=== PATIENT | male | born 1940 | race Caucasian/White ===

== ENCOUNTER 2020-10-30 00:03 | Inpatient (IN) | payer MEDICARE ==
[2020-10-30] VITALS (7 sets, daily range): BP systolic 122–165; BP diastolic 66–100
[~2020-10-30] VITALS: Ht 182.9 cm; Wt 96.9 kg
--- NOTE | 2020-10-30 00:34 | PHYS DOC ---
Past History Past Medical History: Anxiety, Arthritis, Diabetes, UTI Past Surgical History prostate General Adult EDM: Chief Complaint: MECHANICAL FALL HPI: HPI: ".. I went to clean up some urine .. I dribble on the way to bathroom tonight .. and I tripped and fell.. this is second time I ve falled this week... " .. " I ve been having some chest pain too.. all week.. " Patient is a 79 year old male who presents with above hx and complaints of trip with fall. Pt. has fallen twice this week. Patient has had increased weakness unstable gait. Patient on current fall complaints of bilateral hip pain and knee pain. Patient has obvious contusions of both knees. Patient normally follows with Dr. Wilde for care. Follows with Dr. 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 Has past medical history of coronary artery disease, COPD, diabetes, hypertension, A. fib, GERD, enlarged prostate, arthritis, depression, gait disorder and dementia. Review of Systems: Review of Systems: Constitutional: Denies fever or chills Eyes: Denies change in visual acuity HENT: Denies nasal congestion or sore throat Respiratory: Denies cough or shortness of breath Cardiovascular: Denies chest pain or edema GI: Denies abdominal pain, nausea, vomiting, bloody stools or diarrhea : Denies dysuria Musculoskeletal: Complains of bilateral hip and bilateral knee pain Integument: Denies rash Neurologic: Denies headache, focal weakness or sensory changes Endocrine: Denies polyuria or polydipsia Lymphatic: Denies swollen glands Psychiatric: Denies depression or anxiety Family History: Family History: Noncontributory to presentation Current Medications: Current Meds: See nursing for home meds Allergies: Allergies: Allergies Coded Allergies Type Severity Reaction Last Updated Verified No Known Drug Allergies 10/30/20 No Physical Exam: PE: Constitutional:in acute distress, non-toxic appearance. [] HENT: Normocephalic, atraumatic, bilateral external ears normal, oropharynx moist, no oral exudates, nose normal. [] Eyes: PERRLA, EOMI, conjunctiva normal, no discharge. [] Neck: Normal range of motion, no tenderness, supple, no stridor. [] Cardiovascular:Heart rate regular rhythm, no murmur [. PMI to the left. Lungs & Thorax: Bilateral breath sounds a a sick with basilar crackles on auscultation []. Pacer Abdomen: Bowel sounds normal, soft, no tenderness, no masses, no pulsatile masses. Old surgical scar. Skin: Warm, dry, no erythema, no rash. Poor turgor Back: No tenderness, no CVA tenderness. [] Extremities: Bilateral knee and hip tenderness, no cyanosis, no clubbing, ROM that is painful, bilateral knee edema. Ecchymosis to both knees. Is able to complete straight leg lift with effort Neurologic: Alert and oriented X 3, moves all extremities on request, does have distal sensory,, no new focal deficits noted per and patient Psychologic: Affect anxious, judgement apparent memory issues, mood normal. [] EKG: EKG: My interpretation EKG shows a sinus rhythm at 95 bpm. Does have PVCs. Does have PACs. [] Radiology/Procedures: Radiology/Procedures: [][address] [address] IMAGING REPORT Signed PATIENT: JAMMIE COHEN ACCOUNT: [id number] : 1940 LOCATION: ER AGE: 79 SEX: M EXAM STATUS: REG ER ORD. PHYSICIAN: FEDE DAMON MD REASON: fall PROCEDURE: KNEE BILAT 4V EXAMINATION: Pelvic and bilateral hips, bilateral knee radiographs VIEWS: Single AP view of the pelvis and 2 views of bilateral hips and 3views of bilateral knees COMPARISON: None INDICATION:79 years, Male, fall. FINDINGS: Pelvis/hips: No acute fracture or malalignment. Mild symmetric arthritis of bilateral hips right knee: No acute fracture. Chondrocalcinosis is noted in the medial and lateral compartments. Minimal/mild tricompartmental osteoarthritis. Left knee: No acute fracture or malalignment. No significant joint effusion. IMPRESSION: No acute osseous injury of the pelvis or bilateral knees. Electronically signed by: Ziggy Wilson DO (10/30/2020 2:04 AM) [facility] DICTATED AND SIGNED BY: ZIGGY WILSON DO DATE: 10/30/20 0200 CC: FEDE DAMON MD; DEREK POLK MD ~MTH0 0 Heart Score: C/O Chest Pain: N/A HEART Score for Chest Pain: HEART Score for Chest Pain Response (Comments) Value History Moderately Suspicious 1 ECG Nonspecific Repolarizatio 1 Age > 65 2 Risk Factors 1 or 2 Risk Factors 1 Troponin < Normal Limit 0 Total 5 Risk Factors: Risk Factors: DM, Current or recent (<one month) smoker, HTN, HLP, family history of CAD, obesity. Risk Scores: Score 0 - 3: 2.5% MACE over next 6 weeks - Discharge Home Score 4 - 6: 20.3% MACE over next 6 weeks - Admit for Clinical Observation Score 7 - 10: 72.7% MACE over next 6 weeks - Early Invasive Strategies Course & Med Decision Making: Course & Med Decision Making Pertinent Labs and Imaging studies reviewed. (See chart for details) Zeinab presentation, testing and treatment plan with . Admit to his service at [place]. Impression: 1. Trip and Fall 2. Weakness 3. Bilateral Hip and Knee Contusions 4. Leukocytosis 15.8 5. Diabetes glucose 211 6. Urinary tract infection 7. Has completed Covid vaccination x2 [] Dragon Disclaimer: Dragon Disclaimer: This electronic medical record was generated, in whole or in part, using a voice recognition dictation system. Departure Departure: Referrals: DEREK POLK MD (PCP) Rosa Elenaon Disclaimer This chart was dictated in whole or in part using Voice Recognition software in a busy, high-work load, and often noisy Emergency Department environment. It may contain unintended and wholly unrecognized errors or omissions. Dragon Disclaimer This chart was dictated in whole or in part using Voice Recognition software in a busy, high-work load, and often noisy Emergency Department environment. It may contain unintended and wholly unrecognized errors or omissions. FEDE DAMON MD Oct 30, 2020 00:34
[2020-10-30] MEDS ORDERED: NEOMY/BACITR/POLYMYXIN OINT PACKET. TP ONE (01:09)
[2020-10-30 01:22] LABS: BASO # 0.1 x10^3/uL (0.0-0.2); BASO % 1 % (0-3); EOS # 0.2 x10^3/uL (0.0-0.7); EOS % 1 % (0-3); HEMATOCRIT 43.5 % (39.0-53.0); HEMOGLOBIN 14.5 g/dL (13.0-17.5); LYMPH % 7 % (24-48); MEAN CORPUSCULAR HEMOGLOBIN 33 pg (25-35); MEAN CORPUSCULAR HGB CONC 33 g/dL (31-37); MEAN CORPUSCULAR VOLUME 100 fL (79-100); MONO # 1.3 x10^3/uL (0.0-1.1); MONO % 8 % (0-9); NEUT # 13.2 x10^3uL (1.8-7.7); NEUT % 84 % (31-73); PLATELET COUNT 166 x10^3/uL (140-400); RED BLOOD COUNT 4.36 x10^6/uL (4.30-5.70); RED CELL DISTRIBUTION WIDTH 14.7 % (11.5-14.5); WHITE BLOOD COUNT 15.8 x10^3/uL (4.0-11.0)
[2020-10-30 01:27] LABS: BILIRUBIN,URINE NEG (NEG); CLARITY,URINE HAZY; COLOR,URINE YELLOW; GLUCOSE,URINE 100 mg/dL (NEG); NITRITE,URINE NEG (NEG); UROBILINOGEN,URINE 0.2 mg/dL (0.2 mg/dL)
[2020-10-30 01:28] LABS: BACTERIA,URINE FEW /HPF (0-FEW); CALCIUM 9.3 mg/dL (8.5-10.1); CREATININE 0.8 mg/dL (0.7-1.3); GFR 93.7; POTASSIUM 4.3 mmol/L (3.5-5.1); RBC,URINE OCC /HPF (0-2); SQUAMOUS EPITHELIAL CELL,UR FEW /LPF; WBC,URINE 20-40 /HPF (0-4)
[2020-10-30 01:30] LABS: BARBITURATES POS (NEG); BENZODIAZEPINES NEG (NEG); CANNABINOIDS NEG (NEG); COCAINE NEG (NEG); METHADONE NEG (NEG); OPIATES NEG (NEG); PHENCYCLIDINE NEG (NEG)
[2020-10-30] MEDS ORDERED: IV RINGERS SOLUTION,LACTATED 1,000 ML IV SCH (01:30)
[2020-10-30] MEDS ORDERED: MORPHINE SULFATE 10 MG/ML SYRINGE. SQ ONE (01:30)
[2020-10-30 01:48] LABS: ALBUMIN 4.1 g/dL (3.4-5.0); DIRECT BILIRUBIN 0.1 mg/dL (0.0-0.2); MAGNESIUM 1.9 mg/dL (1.8-2.4); TOTAL BILIRUBIN 0.3 mg/dL (0.2-1.0); TOTAL PROTEIN 6.9 g/dL (6.4-8.2)
[2020-10-30 01:52] LABS: AMPHETAMINE/METHAMPHETAMINE NEG (NEG)
[2020-10-30 02:00] LABS: % BANDS 7 % (0-9); % BASOS 1 % (0-3); % EOS 1 % (0-5); % LYMPHS 3 % (24-48); % MONOS 5 % (0-10); % SEGS 83 % (35-66); PLT ESTIMATE ADEQUATE (ADEQUATE)
--- NOTE | 2020-10-30 02:06 | RAD ---
EXAMINATION: Pelvic and bilateral hips, bilateral knee radiographs VIEWS: Single AP view of the pelvis and 2 views of bilateral hips and 3views of bilateral knees COMPARISON: None INDICATION:79 years, Male, fall. FINDINGS: Pelvis/hips: No acute fracture or malalignment. Mild symmetric arthritis of bilateral hips right knee: No acute fracture. Chondrocalcinosis is noted in the medial and lateral compartments. Min imal/mild tricompartmental osteoarthritis. Left knee: No acute fracture or malalignment. No significant joint effusion. IMPRESSION: No acute osseous injury of the pelvis or bilateral knees. Electronically signed by: Pantera Wilson DO (10/30/2020 2:04 AM) [facility]
[2020-10-30] MEDS ORDERED: DULO30CA2 PO (02:12)
[2020-10-30] MEDS ORDERED: METO50TA29 PO (02:12)
[2020-10-30] MEDS ORDERED: GABA600T7 PO (02:12)
[2020-10-30] MEDS ORDERED: TAMS0.4C97 PO (02:12)
[2020-10-30] MEDS ORDERED: ATOR40TA59 PO (02:12)
[2020-10-30] MEDS ORDERED: WARF2TAB96 PO (02:12)
[2020-10-30] MEDS ORDERED: PRIM250T28 PO (02:12)
[2020-10-30] MEDS ORDERED: METF-658 PO (02:12)
[2020-10-30] MEDS ORDERED: VIT1TABL32 PO (02:12)
[2020-10-30] MEDS ORDERED: tylenol arthritis PO (02:12)
[2020-10-30] MEDS ORDERED: WARF10TA40 PO (02:12)
[2020-10-30] MEDS ORDERED: OMEP40CA7 PO (02:12)
[2020-10-30] MEDS ORDERED: FINA5TAB4 PO (02:12)
[2020-10-30] MEDS ORDERED: ACETAMINOPHEN 325 MG TABLET PO PRN ×2 (02:15→13:15)
[2020-10-30] MEDS ORDERED: ONDANSETRON PF 4 MG/2 ML VIAL. IVP PRN (02:15)
[2020-10-30] MEDS ORDERED: cefTRIAXone SODIUM 1 GM VIAL ONE (02:47)
[2020-10-30] MEDS ORDERED: DIPH,PERTUSS(ACELL),TET VAC/PF 0.5 ML SYRINGE. VAX IM ONE ×2 (02:47→03:30)
[2020-10-30] MEDS ORDERED: IV NORMAL SALINE 50ML 50 ML ONE (02:47)
--- NOTE | 2020-10-30 03:32 | EKG ---
[address] [address] Test Date: 2020-10-30 Test Time: 00:16:51 Pat Name: JAMMIE COHEN Department: Room: 105 A Gender: M Business Office Manager: : 1940 Requested By: FEDE DAMON Order Number: [id number] Reading MD: Markie Pool Measurements Intervals [place] Rate: 95 P: 54 CT: 204 QRS: 40 QRSD: 90 T: 39 QT: 336 QTc: 425 Interpretive Statements SINUS RHYTHM VENTRICULAR PREMATURE COMPLEX(ES) ATRIAL PREMATURE COMPLEX(ES) ABNORMAL ECG RI6.02 No previous ECG available for comparison Electronically Signed On 10-31-2020 13:14:12 CDT by Markie Pool
--- NOTE | 2020-10-30 05:31 | NUR ---
Arrives to Rm 105 via cart from ED in stable condition; VSS, A&Ox4; Sats 94% on 2L O2 via nasal canula; LR infusing via #22g IV to left antecubital site; room orientation given, plan of care discussed, verbalizes understanding; no voiced needs or concerns at this time; siderails up x2, call dunne in reach.
--- NOTE | 2020-10-30 06:02 | RAD ---
EXAMINATION: Chest radiograph. VIEWS: Single AP view the chest COMPARISON: None INDICATION:79 years, Male, fall. FINDINGS: Normal cardiomediastinal silhouette. Left chest cardiac pacing device appears to be in stable positio n. Please note bilateral costophrenic angles terminating outside the field of view. There is curvilin ear hazy opacity in the right lower lobe. Minimal left basilar subsegmental atelectasis. No focal con solidation. No pleural effusion or pneumothorax. No acute osseous process. IMPRESSION: Right lower lobe opacity may represent atelectasis and/or contusion in the setting of fall Electronically signed by: Pantera Wilson DO (10/30/2020 5:59 AM) [facility]
[2020-10-30] MEDS: LACTOBACILLUS RHAMNOSUS GG 1 CAPSULE. PO SCH ×2 (07:53→20:34)
[2020-10-30] MEDS ORDERED: IPRATRPIUM/ALBUTEROL 0.5/2.5MG 3 ML NEBU. NEB SCH (08:00)
[2020-10-30] MEDS ORDERED: IPRATRPIUM/ALBUTEROL 0.5/2.5MG 3 ML NEBU. NEB PRN (10:45)
--- NOTE | 2020-10-30 14:38 | HP ---
ADMIT DATE: 10/30/2020 HISTORY OF PRESENT ILLNESS: The patient is a 79-year-old male patient who was brought to the Emergency Room with a complaint of mechanical fall. According to him, he went to clean up some urine, had dribbled on the way to the bathroom and tripped and fell and according to him, this is second time he fell this week. He also complained of some chest pain, that too all the week. This was a complaint to the ER physician, although to me his main complaint was pain in his feet and his back and unsteady gait. Apparently, the patient has increased weakness and unstable gait. He is not using any cane or walker, and he also complained of pain in his hips and knees when he fell, with obvious contusion of both knees. His primary care physician is Dr. Wilde and his ingredient mixer is Dr. Nilay Purdy. He was extensively investigated in the emergency room, has had lab work and imaging studies. His white cell count was found to be high at 15,800. Although, he is on Coumadin for AFib. His INR was subtherapeutic at 1.5. His chemistry was fairly unremarkable. Urinalysis showed the urine was yellow, hazy with pH of 7, there was a large amount of 20-40 wbc's and few bacteria. His tox screen was positive for barbiturates. His chest x-ray showed he has right lower lobe opacity, may represent atelectasis and/or contusion in the setting of fall. X-ray of the knee showed no acute fracture or malalignment, mild symmetric arthritis of both hip joints and x-ray of both knee joints showed no acute fracture, but he does have chondrocalcinosis noted in the medial and lateral compartment on the right knee. On the left knee, there is no acute fracture or malalignment. No significant joint effusion. The patient was admitted with diagnosis of recurrent falls, generalized weakness, urinary tract infection, apparently, he was vaccinated for COVID-19. PAST MEDICAL HISTORY: Significant for hypertension, hyperlipidemia. He also has atrial fibrillation, benign prostatic hypertrophy, peripheral neuropathy, gastroesophageal reflux disease, type 2 diabetes mellitus and senile macular degeneration. PAST SURGICAL HISTORY: Significant for three back surgeries and neck surgery. He has a permanent pacemaker placement, bilateral cataract extraction, tonsillectomy, cholecystectomy, appendectomy. He also underwent screening colonoscopy. ALLERGIES: He has no known drug allergies. MEDICATIONS: He is currently on following medications: He is on tamsulosin 0.4 mg at bedtime, warfarin 3 mg p.o. daily and warfarin 2 mg daily, atorvastatin calcium 40 mg at bedtime, metoprolol succinate 50 mg once a day, primidone 250 mg twice a day, gabapentin 600 mg 3 times a day, duloxetine 30 mg twice a day. He is on omeprazole 40 mg daily. He is on metformin 1000 mg twice a day. He is on Ocuvite tablet one tablet once a day. He is on finasteride 5 mg daily and Tylenol 650 mg every 6 hours as needed for pain. FAMILY HISTORY: Noncontributory. SOCIAL HISTORY: He lives with his ex-. He has 2 sons and 1 daughter. He is an ex-smoker, quit 30 years ago. He is also to be a heavy alcohol drinker, quit 30 years ago. Does not use any drugs. He is a fabricator mechanic/welder, he is retired. REVIEW OF SYSTEMS: The patient denied any blurring vision, has bilateral cataract extractions, has had senile macular degeneration, for which he has received injections into his eyes. Denied any earache, tinnitus or sensory deafness. Denied any nosebleed, stuffy nose or postnasal drip. Denied any sore throat, sore tongue, toothache, hoarseness of voice or difficulty swallowing. Denied any nausea, vomiting, diarrhea or constipation. Denied any hematemesis, melena or hematochezia. Did complain of nocturia, frequency, hesitancy and postvoid dribbling. Denied any hematuria or dysuria. Denies any chest pain, shortness of breath except on exertion. Denied any orthopnea or paroxysmal nocturnal dyspnea. Denied any cough, phlegm or hemoptysis. Denied any chills, rigors or fever. PHYSICAL EXAMINATION: GENERAL: On arrival to the Emergency Room, he looked well and was clearly in no apparent respiratory distress. There was no pallor, jaundice, or cyanosis. No lymphadenopathy, no thyromegaly, no jugular venous distention. Mild bilateral lower limb edema. VITAL SIGNS: His heart rate on arrival was 99, blood pressure 151/89, temperature was 98.6, respiratory rate was 24 and oxygen saturation was 94% on room air. HEAD, EYES, EARS, NOSE, AND THROAT: Normocephalic, atraumatic. NECK: Supple. HEART: Showed normal first and second sound. No gallop or murmur. CHEST: Shows central trachea, equal bilateral chest expansion, air entry, vesicular breath sounds. I could not really appreciate any crepitation or rhonchi. ABDOMEN: Distended, soft, nontender. NEUROLOGIC: He was awake, alert, responding appropriately. All cranial nerves intact. He moves extremities without difficulty, although apparently has generalized weakness, unsteady gait and recurrent falls. LABORATORY DATA: In the Emergency Room, has had lab work done, which showed that his white cell count was high at 15,800, hemoglobin 14.5, hematocrit 43.5, MCV 100 and platelet count of 166,000 with a manual differential showing 84% polymorphs, 8% monocytes, 7% lymphocytes. His prothrombin time was 14.9, INR 1.5, APTT was 32 and a D-dimer was 0.29. His chemistry showed a serum sodium 141, potassium 4.3, chloride 101, bicarbonate 31, anion gap of 9, BUN 10, creatinine 0.8,estimated GFR was 94 mL per minute, her glucose was 211, calcium was 9.3, magnesium was 1.9. Total bilirubin, AST, ALT and alkaline phosphatase were normal. CK was 51. Beta natriuretic peptide was 111. Total protein was 6.9, albumin was 4.1. His urinalysis showed the urine was yellow, hazy with a pH of 7, specific gravity of 1.020. There was small amount of protein, small amount of glucose, trace of ketones, trace of blood, negative for nitrite and bilirubin. There was small amount of leukocyte esterase, occasional rbc's, 20-40 wbc's and few bacteria. Toxic screen was positive for barbiturates. His coronavirus by rapid testing was negative. His chest x-ray showed normal cardiomediastinal silhouette, left chest cardiac pacing device appears to be in stable position. He is not bilateral costophrenic angles termination outside the field of view. There is a curvilinear hazy opacity in the right lower lobe, minimal left basilar subsegmental atelectasis, no focal consolidation. No pleural effusion, no pneumothorax, no acute osseous abnormality. X-ray of the pelvis and hip showed no acute fracture or malalignment. Mild symmetric arthritis of bilateral hips, right knee showed no acute fracture. He has chondrocalcinosis noted in the medial and lateral compartment, minimal; mild tricompartmental osteoarthritis, left knee showed no acute fracture or malalignment. No significant joint effusion. ASSESSMENT AND PLAN: The patient was admitted with generalized weakness and recurrent falls. He was found also to have urinary tract infection with marked leukocytosis and leukocyturia. I did reconcile his medication. His PT/INR is subtherapeutic. I will consult physical and occupational therapy. We will check also his orthostatic and decide on further management accordingly. ERNESTO DR: Thao TID: [id number]
[2020-10-30] MEDS: GABAPENTIN 300 MG CAPSULE. PO SCH ×2 (15:53→20:34)
[2020-10-30] MEDS: metFORMIN XR 500 MG TAB.ER.24H PO SCH (15:53)
--- NOTE | 2020-10-30 17:17 | NUR ---
PT SAW PT/OT TODAY. PT CAN USE A WALKER AND GO TO BEDSIDE COMMODE WITH 1-2 PERSON ASSIST. PT SAT AT BEDSIDE FOR SOME TIME TODAY AND THEN SAT IN CHAIR FOR SOME TIME TODAY. PT LIVES AT HOME WITH EX-. PT STATES HE IS GOING TO START USING A WALKER AT HOME. PT DID NOT COMPLAIN OF PAIN TODAY.
--- NOTE | 2020-10-30 18:04 | NUR ---
CONSULT CALLED TO CARDIOLOGY PER DR. ENG
--- NOTE | 2020-10-30 19:11 | NUR ---
Pt is feeling fatigued this evening and was unable to stand for last set of orthostatic VS.
[2020-10-30] MEDS: PRIMIDONE 250 MG TABLET PO SCH (20:34)
[2020-10-30] MEDS: MULTIVITAMIN I-VITE TABLET. PO SCH (20:34)
[2020-10-30] MEDS: DULoxetine HCL 30 MG CAPSULE.DR PO SCH (20:34)
[2020-10-30] MEDS ORDERED: TAMSULOSIN 0.4 MG CAP.ER.24H. PO SCH (21:00)
[2020-10-30] MEDS ORDERED: ATORVASTATIN CALCIUM 20 MG TABLET PO SCH (21:00)
[2020-10-31 05:00] VITALS: BP 117/74
[2020-10-31 06:22] LABS: BASO # 0.1 x10^3/uL (0.0-0.2); BASO % 1 % (0-3); EOS # 0.1 x10^3/uL (0.0-0.7); EOS % 1 % (0-3); HEMATOCRIT 40.3 % (39.0-53.0); HEMOGLOBIN 13.5 g/dL (13.0-17.5); LYMPH # 0.9 x10^3/uL (1.0-4.8); LYMPH % 7 % (24-48); MEAN CORPUSCULAR HEMOGLOBIN 33 pg (25-35); MEAN CORPUSCULAR HGB CONC 34 g/dL (31-37); MEAN CORPUSCULAR VOLUME 100 fL (79-100); MONO # 1.2 x10^3/uL (0.0-1.1); MONO % 9 % (0-9); NEUT % 83 % (31-73); PLATELET COUNT 137 x10^3/uL (140-400); RED BLOOD COUNT 4.04 x10^6/uL (4.30-5.70); RED CELL DISTRIBUTION WIDTH 14.5 % (11.5-14.5); WHITE BLOOD COUNT 13.3 x10^3/uL (4.0-11.0)
[2020-10-31 06:38] LABS: ALBUMIN 3.4 g/dL (3.4-5.0); ALBUMIN/GLOBULIN RATIO 1.1 (1.0-1.7); CALCIUM 8.6 mg/dL (8.5-10.1); CREATININE 0.6 mg/dL (0.7-1.3); GFR 130.6; TOTAL BILIRUBIN 0.6 mg/dL (0.2-1.0); TOTAL PROTEIN 6.4 g/dL (6.4-8.2)
[2020-10-31] MEDS ORDERED: PANTOPRAZOLE 40 MG TABLET. PO SCH (07:30)
[2020-10-31] MEDS: metFORMIN XR 500 MG TAB.ER.24H PO SCH (07:49)
[2020-10-31] MEDS: LACTOBACILLUS RHAMNOSUS GG 1 CAPSULE. PO SCH (07:49)
[2020-10-31] MEDS: DULoxetine HCL 30 MG CAPSULE.DR PO SCH (07:49)
[2020-10-31] MEDS: MULTIVITAMIN I-VITE TABLET. PO SCH (07:49)
[2020-10-31] MEDS: GABAPENTIN 300 MG CAPSULE. PO SCH ×2 (07:49→13:50)
[2020-10-31] MEDS: PRIMIDONE 250 MG TABLET PO SCH (07:50)
--- NOTE | 2020-10-31 08:45 | PDOC2 ---
CARDIAC CONSULT DATE OF CONSULT DOS: DATE: 10/31/20 TIME: 08:24 REASON FOR CONSULT Reason for Consult ? pacemaker malfunction REFERRING PHYSICIAN Referring Physician Dr. Ramirez SOURCE Source: Chart review, Patient HPI History of Present Illness This is a 79 yo male who presented secondary to mechanical fall. Patient reports increased weakness recently. Has fallen twice this week. Feel earlier in the week as he slipped on urine on the bathroom floor. Reports man that helped him up grabbed him around the chest to lift him and he has been experiencing pain in his chest. Is worse with certain movements and with apply pressure to the central chest. Yesterday, reports he was carrying groceries in and was slightly off balance. Cannot recall if he was dizzy and fell or tripped and fell because "it happened so quickly". Denies any loss of consciousness. No palpitations, diaphoresis, or nausea/vomiting. Fell down onto his knees. Did not did his head. PAST MEDICAL HISTORY Cardiovascular: AFIB, HTN, hyperipidemia, Other (AAA) Pulmonary: COPD CENTRAL NERVOUS SYSTEM: Dementia, Seizure GI: GERD Renal/: Benign prostatic enlarg. Endocrine: Diabetes PAST SURGICAL HISTORY Past Surgical History: Appendectomy, Cholecystectomy, Pacemaker, Tonsillectomy, Other (vasectomy ) FAMILY HISTORY Family History: Hypertension SOCIAL HISTORY Smoke: Quit ALCOHOL: none Drugs: None Lives: with Family CURRENT MEDICATIONS Current Medications Current Medications Lactated Ringer's 1,000 ml @ 100 mls/hr Q10H IV Last administered on 10/30/20at 03:14; Start 10/30/20 at 01:30; Stop 10/30/20 at 11:29; Status DC Morphine Sulfate (Morphine 10mg Syringe) 10 mg 1X ONCE SQ Last administered on 10/30/20at 01:14; Start 10/30/20 at 01:30; Stop 10/30/20 at 01:31; Status DC Neomycin/ Polymyxin/ Bacitracin (Triple Antibiotic Ointment) 1 pkt STK-MED ONCE TP ; Start 10/30/20 at 01:09; Stop 10/30/20 at 01:10; Status DC Ceftriaxone Sodium 1 gm/ Sodium Chloride 50 ml @ 100 mls/hr 1X ONCE IV Last administered on 10/30/20at 03:15; Start 10/30/20 at 02:30; Stop 10/30/20 at 02:59; Status DC Ondansetron HCl (Zofran) 4 mg PRN Q4HRS PRN IVP NAUSEA/VOMITING; Start 10/30/20 at 02:15; Stop 10/31/20 at 02:14; Status DC Acetaminophen (Tylenol) 650 mg PRN Q4HRS PRN PO FEVER > 100.3'F Last adm inistered on 10/30/20at 10:27; Start 10/30/20 at 02:15; Stop 10/31/20 at 02:14; Status DC Albuterol/ Ipratropium (Duoneb) 3 ml RTQID NEB ; Start 10/30/20 at 08:00; Stop 10/30/20 at 10:39; Status DC Ceftriaxone Sodium 1 gm/ Sodium Chloride 50 ml @ 100 mls/hr QHS IV Last administered on 10/30/20at 20:34; Start 10/30/20 at 21:00 Sodium Chloride 50 ml @ As Directed STK-MED ONCE .ROUTE ; Start 10/30/20 at 02:47; Stop 10/30/20 at 02:47; Status DC Ceftriaxone Sodium (Rocephin) 1 gm STK-MED ONCE .ROUTE ; Start 10/30/20 at 02:47; Stop 10/30/20 at 02:47; Status DC Diphtheria/ Pertussis/Tetanus Vacc (ADACEL TDap SYRINGE) 0.5 ml STK-MED ONCE VAX IM ; Start 10/30/20 at 02:47; Stop 10/30/20 at 02:48; Status DC Diphtheria/ Pertussis/Tetanus Vacc (ADACEL TDap SYRINGE) 0.5 ml ONCE ONCE VAX IM Last administered on 10/30/20at 03:19; Start 10/30/20 at 03:30; Stop 10/30/20 at 03:31; Status DC Lactobacillus Rhamnosus (Culturelle) 1 cap BID PO Last administered on 10/31/20at 07:49; Start 10/30/20 at 09:00 Albuterol/ Ipratropium (Duoneb) 3 ml PRN QID PRN NEB COUGH; Start 10/30/20 at 10:45 Duloxetine HCl (Cymbalta) 30 mg BID PO Last administered on 10/31/20at 07:49; Start 10/30/20 at 21:00 Finasteride (Proscar) 5 mg DAILY PO Last administered on 10/31/20at 07:49; Start 10/31/20 at 09:00 Metformin HCl (Glucophage Xr) 1,000 mg BIDBFRMEAL PO Last administered on 10/31/20at 07:49; Start 10/30/20 at 16:30 Metoprolol Succinate (Toprol Xl) 50 mg DAILY PO Last administered on 10/31/20at 07:50; Start 10/31/20 at 09:00 Primidone (Mysoline) 250 mg BID PO Last administered on 10/31/20at 07:50; Start 10/30/20 at 21:00 Tamsulosin HCl (Flomax) 0.4 mg QHS PO Last administered on 10/30/20at 20:34; Start 10/30/20 at 21:00 Multivitamins/ Minerals (I-Chema) 1 tab BID PO Last administered on 10/31/20at 07:49; Start 10/30/20 at 21:00 Warfarin Sodium (Coumadin) 10 mg DAILY PO ; Start 10/31/20 at 09:00; Status UNV Atorvastatin Calcium (Lipitor) 40 mg QHS PO Last administered on 10/30/20at 20:34; Start 10/30/20 at 21:00 Gabapentin (Neurontin) 600 mg TID PO Last administered on 10/31/20at 07:49; Start 10/30/20 at 14:00 Pantoprazole Sodium (Protonix) 40 mg DAILYAC PO Last administered on 10/31/20at 07:49; Start 10/31/20 at 07:30 Acetaminophen (Tylenol) 650 mg PRN Q6HRS PRN PO MILD PAIN / TEMP > 100.3'F; St art 10/30/20 at 13:15 Active Scripts Active Reported Warfarin Sodium 10 Mg Tablet 10 Mg PO DAILY Warfarin Sodium 2 Mg Tablet 3 Mg PO DAILY [tylenol arthritis] 650 Mg PO Q6HRS PRN PAIN Flomax (Tamsulosin Hcl) 0.4 Mg Cap.er.24h 0.4 Mg PO QHS Mysoline (Primidone) 250 Mg Tablet 250 Mg PO BID Omeprazole 40 Mg Capsule.dr 40 Mg PO DAILY Ocuvite Tablet (Vit A,C & E/Lutein/Minerals) 1 Each Tablet 1 Each PO BID Metoprolol Succinate ( Xl ) (Metoprolol Succinate) 50 Mg Tab.er.24h 50 Mg PO DAILY Metformin Hcl Er (Metformin Hcl) 500 Mg Tab.er.24h 1,000 Mg PO BIDBFRMEAL Gabapentin 600 Mg Tablet 600 Mg PO TID Finasteride 5 Mg Tablet 5 Mg PO DAILY Cymbalta (Duloxetine Hcl) 30 Mg Capsule.dr 30 Mg PO BID Atorvastatin Calcium 40 Mg Tablet 40 Mg PO QHS ALLERGIES Allergies: Coded Allergies: No Known Drug Allergies (Unverified , 10/30/20) ROS Review of Systems 14 point ROS conducted with pertinent positives noted above in HPI PHYSICAL EXAM General: Alert, Oriented X3, Cooperative, No acute distress HEENT: Atraumatic Lungs: Clear to auscultation Heart: Regular rate Abdomen: Soft, No tenderness Extremities: Other (trace bilateral LE edema ) Skin: No rashes Neuro: Normal speech, Sensation intact Psych/Mental Status: Mental status NL, Mood NL MUSCULOSKELETAL: Osteoarthritic changes both hands VITALS Vital Signs Vital Signs Date Time Temp Pulse Resp B/P (MAP) Pulse Ox O2 Delivery O2 Flow Rate FiO2 10/31/20 07:50 84 117/74 10/31/20 05:00 98.1 18 93 Nasal Cannula 2.0 LABS LABS Laboratory Tests Test 10/30/20 00:58 10/30/20 02:20 10/30/20 03:29 10/30/20 06:32 White Blood Count 15.8 x10^3/uL (4.0-11.0) Red Blood Count 4.36 x10^6/uL (4.30-5.70) Hemoglobin 14.5 g/dL (13.0-17.5) Hematocrit 43.5 % (39.0-53.0) Mean Corpuscular Volume 100 fL (79-100) Mean Corpuscular Hemoglobin 33 pg (25-35) Mean Corpuscular Hemoglobin Concent 33 g/dL (31-37) Red Cell Distribution Width 14.7 % (11.5-14.5) Platelet Count 166 x10^3/uL (140-400) Neutrophils (%) (Auto) 84 % (31-73) Lymphocytes (%) (Auto) 7 % (24-48) Monocytes (%) (Auto) 8 % (0-9) Eosinophils (%) (Auto) 1 % (0-3) Basophils (%) (Auto) 1 % (0-3) Neutrophils # (Auto) 13.2 x10^3uL (1.8-7.7) Lymphocytes # (Auto) 1.0 x10^3/uL (1.0-4.8) Monocytes # (Auto) 1.3 x10^3/uL (0.0-1.1) Eosinophils # (Auto) 0.2 x10^3/uL (0.0-0.7) Basophils # (Auto) 0.1 x10^3/uL (0.0-0.2) Segmented Neutrophils % 83 % (35-66) Band Neutrophils % 7 % (0-9) Lymphocytes % 3 % (24-48) Monocytes % 5 % (0-10) Eosinophils % 1 % (0-5) Basophils % 1 % (0-3) Platelet Estimate Adequate (ADEQUATE) Prothrombin Time 14.9 SEC (9.4-11.4) Prothromb Time International Ratio 1.5 (0.9-1.1) Activated Partial Thromboplast Time 32 SEC (23-33) D-Dimer (Roxanne) 0.29 mg/L (0.00-0.50) Urine Collection Type Void Urine Color Yellow Urine Clarity Hazy Urine pH 7.0 Urine Specific Valentines 1.020 Urine Protein 30 mg/dl (NEG-TRACE) Urine Glucose (UA) 100 mg/dL (NEG) Urine Ketones (Stick) Trace mg/dL (NEG) Urine Blood Trace (NEG) Urine Nitrite Neg (NEG) Urine Bilirubin Neg (NEG) Urine Urobilinogen Dipstick 0.2 mg/dL (0.2 mg/dL) Urine Leukocyte Esterase Small (NEG) Urine RBC Occ /HPF (0-2) Urine WBC 20-40 /HPF (0-4) Urine Squamous Epithelial Cells Few /LPF Urine Bacteria Few /HPF (0-FEW) Sodium Level 141 mmol/L (136-145) Potassium Level 4.3 mmol/L (3.5-5.1) Chloride Level 101 mmol/L (98-107) Carbon Dioxide Level 31 mmol/L (21-32) Anion Gap 9 (6-14) Blood Urea Nitrogen 10 mg/dL (8-26) Creatinine 0.8 mg/dL (0.7-1.3) Estimated GFR (Cockcroft-Gault) 93.7 Glucose Level 211 mg/dL (70-99) Calcium Level 9.3 mg/dL (8.5-10.1) Magnesium Level 1.9 mg/dL (1.8-2.4) Total Bilirubin 0.3 mg/dL (0.2-1.0) Direct Bilirubin 0.1 mg/dL (0.0-0.2) Aspartate Amino Transf (AST/SGOT) 13 U/L (15-37) Alanine Aminotransferase (ALT/SGPT) 28 U/L (16-63) Alkaline Phosphatase 88 U/L (46-116) Creatine Kinase 51 U/L (39-308) Troponin I Quantitative < 0.017 ng/mL (0-0.055) < 0.017 ng/mL (0-0.055) < 0.017 ng/mL (0-0.055) HU-Svs-V-Type Natriuretic Peptide 111 pg/mL (0-449) Total Protein 6.9 g/dL (6.4-8.2) Albumin 4.1 g/dL (3.4-5.0) Lipase 63 U/L (73-393) Thyroid Stimulating Hormone (TSH) 1.904 uIU/mL (0.358-3.740) Urine Opiates Screen Neg (NEG) Urine Methadone Screen Neg (NEG) Urine Barbiturates Pos (NEG) Urine Phencyclidine Screen Neg (NEG) Urine Amphetamine/Methamphetamine Neg (NEG) Urine Benzodiazepines Screen Neg (NEG) Urine Cocaine Screen Neg (NEG) Urine Cannabinoids Screen Neg (NEG) Urine Ethyl Alcohol Neg (NEG) Coronavirus (COVID-19)(PCR) Negative (NEGATIVE) SARS-CoV-2 Antigen (Rapid) Negative (NEGATIVE) Test 10/30/20 07:30 10/30/20 11:39 10/30/20 21:27 10/31/20 05:35 Glucose (Fingerstick) 183 mg/dL (70-99) 193 mg/dL (70-99) 214 mg/dL (70-99) White Blood Count 13.3 x10^3/uL (4.0-11.0) Red Blood Count 4.04 x10^6/uL (4.30-5.70) Hemoglobin 13.5 g/dL (13.0-17.5) Hematocrit 40.3 % (39.0-53.0) Mean Corpuscular Volume 100 fL (79-100) Mean Corpuscular Hemoglobin 33 pg (25-35) Mean Corpuscular Hemoglobin Concent 34 g/dL (31-37) Red Cell Distribution Width 14.5 % (11.5-14.5) Platelet Count 137 x10^3/uL (140-400) Neutrophils (%) (Auto) 83 % (31-73) Lymphocytes (%) (Auto) 7 % (24-48) Monocytes (%) (Auto) 9 % (0-9) Eosinophils (%) (Auto) 1 % (0-3) Basophils (%) (Auto) 1 % (0-3) Neutrophils # (Auto) 11.0 x10^3uL (1.8-7.7) Lymphocytes # (Auto) 0.9 x10^3/uL (1.0-4.8) Monocytes # (Auto) 1.2 x10^3/uL (0.0-1.1) Eosinophils # (Auto) 0.1 x10^3/uL (0.0-0.7) Basophils # (Auto) 0.1 x10^3/uL (0.0-0.2) Prothrombin Time 12.0 SEC (9.4-11.4) Prothromb Time International Ratio 1.2 (0.9-1.1) Sodium Level 138 mmol/L (136-145) Potassium Level 4.0 mmol/L (3.5-5.1) Chloride Level 103 mmol/L (98-107) Carbon Dioxide Level 29 mmol/L (21-32) Anion Gap 6 (6-14) Blood Urea Nitrogen 7 mg/dL (8-26) Creatinine 0.6 mg/dL (0.7-1.3) Estimated GFR (Cockcroft-Gault) 130.6 BUN/Creatinine Ratio 12 (6-20) Glucose Level 232 mg/dL (70-99) Calcium Level 8.6 mg/dL (8.5-10.1) Total Bilirubin 0.6 mg/dL (0.2-1.0) Aspartate Amino Transf (AST/SGOT) 11 U/L (15-37) Alanine Aminotransferase (ALT/SGPT) 22 U/L (16-63) Alkaline Phosphatase 68 U/L (46-116) Total Protein 6.4 g/dL (6.4-8.2) Albumin 3.4 g/dL (3.4-5.0) Albumin/Globulin Ratio 1.1 (1.0-1.7) Test 10/31/20 07:39 Glucose (Fingerstick) 227 mg/dL (70-99) ASSESSMENT/PLAN Assessment/Plan 1. Weakness, recurrent fall. Most probably mechanical 2. Chest pain, atypical. Most probably MSK in origin. AMI ruled out. 3. SSS s/p PPM ([facility]) 4. PAFIB; presently SR. on warfarin for stroke prophylaxis. INR subtherapeutic at 1.2. Follows with [facility] cardiology, Dr. Pemberton. 5. Hypertension; controlled overall. 6. Hyperlipidemia; statin 7. Diabetes, II 8. Dementia 9. Seizures 10. Leukocytosis, UTI Recommendations Continue metoprolol for rate control Warfarin for stroke prophylaxis. Device interrogation Consider for LAAO given falls, weakness. Will defer to primary channel program manager PT/OT Supportive care NASEEM MCCLELLAND APRN Oct 31, 2020 08:45
[2020-10-31] MEDS ORDERED: FINASTERIDE 5 MG TABLET. PO SCH (09:00)
[2020-10-31] MEDS ORDERED: METOPROLOL SUCC 24HR ER 50 MG TAB.ER.24H. PO SCH (09:00)
[2020-10-31 10:55] VITALS: BP 134/77
[2020-10-31] MEDS ORDERED: TAMSULOSIN 0.4 MG CAP.ER.24H. PO SCH (11:15)
--- NOTE | 2020-10-31 14:17 | PN ---
DATE: 10/31/2020 SUBJECTIVE: The patient is sitting in his recliner, no apparent distress. On questioning him, he continued to complain of nocturia and postvoid dribbling. He also complained of generalized weakness. He requires 2-person assist getting from bed to chair and vice versa. PHYSICAL EXAMINATION: GENERAL: When I examined him, he looked pale; no jaundice, cyanosis or thyromegaly. No jugular venous distention. Mild bilateral lower extremity edema. VITAL SIGNS: His heart rate was 96, blood pressure was 134/77, temperature was 98.4, respiratory rate was 18 and oxygen saturation was 92% on 2 liters of oxygen. HEAD, EYES, EARS, NOSE, AND THROAT: Normocephalic, atraumatic. NECK: Supple. HEART: Showed normal first and second heart sounds, no gallop, rub or murmur. CHEST: Clear to auscultation, no crepitation or rhonchi. ABDOMEN: Distended, soft, nontender. NEUROLOGIC: He is awake, alert, responding appropriately. All cranial nerves intact. He moves extremities without difficulty, although he is extremely weak and required 2-person assist to get him out of the bed to the chair. His intake is completely recorded. LABORATORY DATA: As of this morning, his white cell count is down to 13,300, hemoglobin 13.5, hematocrit 40, MCV 100 and platelet count of 137,000. His chemistry this morning showed a serum sodium 138, potassium 4, chloride 103, bicarbonate 29, anion gap of 6, BUN 7, creatinine 0.6. Estimated GFR was 113 mL per minute. His glucose 232, calcium was 8.6. Total bilirubin, AST, ALT, alkaline phosphatase were normal. Total protein 6.4, albumin 3.4. His prothrombin time and INR are subtherapeutic. Urinalysis showed the patient has a small amount of leukocyte esterase, occasional rbc's and 20-40 wbc's, although no bacteria. Toxic screen was negative and urine cultures so far was negative. ASSESSMENT: Generalized weakness and recurrent falls. Although he has leukocyturia and leukocytosis, his urine cultures are so far negative. PLAN: To continue physical and occupational therapy. The patient definitely requires jail facility as he continued to require 2-person assist. BASILIO DR: Thao TID: [id number]
[2020-10-31 15:15] VITALS: BP 129/74
--- NOTE | 2020-10-31 15:15 | DISCH ---
DISCHARGE ORDERS DISCHARGE DATE: Oct 31, 2020 FINAL DIAGNOSIS generalized weakness recurrent falls BPH ATRIAL FIBRILLATION CONDITION AT DISCHARGE: Stable Code Status: Full SNF STAY <30 DAYS: Yes POST DISCHARGE ORDERS: ACTIVITY ORDERS: Resume previous activity DIET AFTER DISCHARGE: Cardiac DISCHARGE MEDICATIONS: Home Meds Reported Medications Warfarin Sodium (WARFARIN SODIUM) 10 Mg Tablet, 10 MG PO DAILY for afib, TAB 10/30/20 Warfarin Sodium (WARFARIN SODIUM) 2 Mg Tablet, 3 MG PO DAILY for daily as directed by INR, TAB 10/30/20 [tylenol arthritis] No Conflict Check, 650 MG PO q6hrs prn pain 10/30/20 Tamsulosin Hcl (FLOMAX) 0.4 Mg Cap.er.24h, 0.4 MG PO QHS for prostate, CAP.SR 10/30/20 Primidone (MYSOLINE) 250 Mg Tablet, 250 MG PO BID for unknown, TAB 10/30/20 Omeprazole (OMEPRAZOLE) 40 Mg Capsule.dr, 40 MG PO DAILY for GERD, CAP 10/30/20 Vit A,C & E/Lutein/Minerals (OCUVITE TABLET) 1 Each Tablet, 1 EACH PO BID for dry eyes, TAB 10/30/20 Metoprolol Succinate (METOPROLOL SUCCINATE ( XL )) 50 Mg Tab.er.24h, 50 MG PO DAILY for FOR HYPERTENSION, #30 TAB 0 Refills 10/30/20 Metformin Hcl (METFORMIN HCL ER) 500 Mg Tab.er.24h, 1000 MG PO BIDBFRMEAL for ANTI-DIABETIC, TAB 0 Refills 10/30/20 Gabapentin (GABAPENTIN) 600 Mg Tablet, 600 MG PO TID for NEUROGENIC PAIN, TAB 10/30/20 Finasteride (FINASTERIDE) 5 Mg Tablet, 5 MG PO DAILY for prostate, TAB 10/30/20 Duloxetine Hcl (CYMBALTA) 30 Mg Capsule.dr, 30 MG PO BID for depression, CAP 10/30/20 Atorvastatin Calcium (ATORVASTATIN CALCIUM) 40 Mg Tablet, 40 MG PO QHS for FOR CHOLESTEROL, #30 TAB 0 Refills 10/30/20 SHANITA ENG MD Oct 31, 2020 15:15
--- NOTE | 2020-10-31 15:34 | NUR ---
PATIENT IS DISCHARGED TO [facility], REPORT GIVEN TO ABRAM ARCINIEGA. PATIENT LEFT ROOM VIA W/C SERENE NICKER. PATIENT IS TAKEN HOME VIA TRANSPORTATION PROVIDED BY FACILITY.
[2020-10-31] MEDS ORDERED: WARFARIN 10 MG TABLET. PO SCH (16:00)
--- NOTE | 2020-11-19 15:07 | DS ---
DATE OF DISCHARGE: 10/31/2020 HOSPITAL COURSE: The patient is a 79-year-old male patient who was admitted through the Emergency Room of [facility] with a complaint of mechanical fall. According to him, he went to clean up some urine as he dribbled on the way to the bathroom and tripped and fell. According to him, this is the second time he fell that week. He also complained of some chest pain through all the week. This was a complaint to the ER physician, although to me, his main complaint was pain in his feet, his back and unsteady gait. Apparently, the patient has increased weakness and unstable gait. He is not using any cane or walker and he also complained of pain in his hips and knees when he fell with obvious contusions of both knees. His primary care physician is Dr. Wilde and his engravings polisher, Dr. Pemberton at [facility]. He was extensively investigated in the Emergency Room, has had lab work and imaging studies. His white cell count was found to be high at 15,800. Although he is on Coumadin for AFib, his INR was subtherapeutic at 1.5. His chemistry was fairly unremarkable. Urinalysis showed the urine was yellow, hazy with a pH of 7. There was large amount of leukocyte. His toxic screen was positive for barbiturates. His chest x-ray showed that he has right lower lobe opacity that may represent atelectasis and/or contusion in the setting of fall. 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 On the left knee, there is no acute fracture or malalignment. No significant joint effusion. He was admitted with diagnosis of recurrent falls, generalized weakness, urinary tract infection. Apparently, he was vaccinated for COVID-19. He was seen by the Cardiology team, and his acute myocardial infarction was ruled out as he had 3 sets of cardiac enzymes that showed troponin to be less than 0.01. His urine culture has shown no growth and as the patient continues to be weak and debilitated, a decision was made to discharge him to [facility] to continue with the process of rehabilitation. PHYSICAL EXAMINATION: GENERAL: On the day of discharge, the patient looked well and was clearly in no apparent respiratory distress. There was no pallor, jaundice, cyanosis or thyromegaly. No jugular venous distention. No limb edema. VITAL SIGNS: His heart rate was 88, blood pressure was 129/74, temperature was 98, respiratory rate was 20 and oxygen saturation was 92% on 2 liters of oxygen. The rest of clinical exam stable. LABORATORY DATA: His lab work showed a white cell count of 13,300, hemoglobin 13.5, hematocrit 40, MCV 100 and platelet count of 137,000. His chemistry showed a serum sodium 138, potassium 4, chloride 103, bicarbonate 29, anion gap of 6, BUN 7, creatinine 0.6 mg/dL. His prothrombin time and INR was 12 and 1.2. Urinalysis showed the urine was yellow, hazy with a pH of 7, specific gravity of 1.020. There is small amount of protein in the urine, small amount of glucose. There is trace of ketones, occasional rbc's, 20-40 wbc's, but very few bacteria. His toxic screen was positive for barbiturates. DISCHARGE MEDICATIONS: He was discharged to [facility] to continue on atorvastatin calcium 40 mg at bedtime, Cymbalta 30 mg twice a day, finasteride 5 mg once a day, gabapentin 600 mg 3 times a day, metformin 1000 mg twice a day, metoprolol succinate 50 mg once a day, omeprazole 40 mg daily, primidone or Mysoline 250 mg twice a day, tamsulosin 0.4 mg at bedtime. He is also on Tylenol 650 mg every 6 hours, multivitamin or Ocuvite one tablet twice a day. He is on Coumadin mg daily. FINAL DISCHARGE DIAGNOSES: 1. Weakness with recurrent falls, most likely mechanical. 2. Chest pain, atypical, acute myocardial infarction ruled out. The patient has sick sinus syndrome, status post permanent pacemaker placement. 3. Paroxysmal atrial fibrillation. 4. Hypertension, seems to be well controlled. 5. Hyperlipidemia, on statin. 6. Type 2 diabetes mellitus, on metformin. 7. Dementia. 8. Seizure disorder. COBY/OLU/TAINA DR: Thao TID: [id number]
== END 2020-10-31 15:35 | DRG 690 ==
LOC: ER 00:03 → 1 SOUTH 02:36
PROVIDERS: ADMIT Internal Medicine; ATTEND Internal Medicine
DX: N39.0 Urinary tract infection, site not specified (principal); T82.119A Breakdown (mechanical) of unspecified cardiac electronic device, initial encounter; S80.01XA Contusion of right knee, initial encounter; E11.9 Type 2 diabetes mellitus without complications; E78.5 Hyperlipidemia, unspecified; F03.90 Unspecified dementia, unspecified severity, without behavioral disturbance, psychotic disturbance, mood disturbance, and anxiety; G25.0 Essential tremor; I10 Essential (primary) hypertension; I25.10 Atherosclerotic heart disease of native coronary artery without angina pectoris; J44.9 Chronic obstructive pulmonary disease, unspecified; M11.20 Other chondrocalcinosis, unspecified site; N39.43 Post-void dribbling; N40.0 Benign prostatic hyperplasia without lower urinary tract symptoms; R29.6 Repeated falls; S80.02XA Contusion of left knee, initial encounter; W01.0XXA Fall on same level from slipping, tripping and stumbling without subsequent striking against object, initial encounter; Z79.01 Long term (current) use of anticoagulants; Z82.49 Family history of ischemic heart disease and other diseases of the circulatory system; Z87.891 Personal history of nicotine dependence; Z95.0 Presence of cardiac pacemaker; Z98.41 Cataract extraction status, right eye; Z98.42 Cataract extraction status, left eye; F32.9 Major depressive disorder, single episode, unspecified; F41.9 Anxiety disorder, unspecified; K21.9 Gastro-esophageal reflux disease without esophagitis; M19.90 Unspecified osteoarthritis, unspecified site; R07.89 Other chest pain; I48.0 Paroxysmal atrial fibrillation; Y71.2 Prosthetic and other implants, materials and accessory cardiovascular devices associated with adverse incidents; Z20.822 Contact with and (suspected) exposure to COVID-19; Z86.69 Personal history of other diseases of the nervous system and sense organs
CPT/HCPCS: 36415; 71045; 73521; 80048; 80053; 80076; 80307; 81001; 82550; 82947; 83690; 83735; 83880; 84443; 84484; 85007; 85025; 85379; 85610; 85730; 87086; 87426; 90471; 90715; 93005; 96365; 96372; J0696; J2270; J7120; U0003; 73564-50; 97530; 97535; 99285-25

== ENCOUNTER 2020-11-04 15:55 | Emergency (ER) | payer MEDICARE ==
[~2020-11-04] VITALS: Ht 182.9 cm; Wt 96.9 kg
[2020-11-04 15:55] VITALS: BP 132/66
[~2020-11-04 15:55] MED LIST: ATOR40TA59 PO; DULO30CA2 PO; FINA5TAB4 PO; GABA600T7 PO; METF-658 PO; METO50TA29 PO; OMEP40CA7 PO; PRIM250T28 PO; TAMS0.4C97 PO; VIT1TABL32 PO; WARF10TA40 PO; WARF2TAB96 PO; tylenol arthritis PO
--- NOTE | 2020-11-04 16:13 | PHYS DOC ---
Past History Past Medical History: Anxiety, Arthritis, Diabetes, UTI Additional Past Medical Histor: prostate issues;enlarged prostate;macular deg- haile;tremors; Past Surgical History: Appendectomy, Cholecystectomy, Pacemaker, Tonsillectomy, Other Additional Past Surgical Histo: cataract-haile;back surgeryx3;vasectomy Alcohol Use: None Adult General Chief Complaint Chief Complaint: MECHANICAL FALL HPI HPI Patient is a 79-year-old male presenting via EMS for unwitnessed fall. This was suffered at halfway and as stated, was unwitnessed. Patient is a poor hist orian and knows little about his medical history. Does admit he is on Coumadin for having a pacemaker but otherwise unsure of other medical issues. States he does not know what happened, cannot recall his fall. It was reported that patient was found down at his facility for an unknown amount of time and was altered prompting him to call EMS for transport to our facility for evaluation. On arrival, patient reports posterior head and neck pain only. Review of Systems Review of Systems Fourteen body systems of review of systems have been reviewed. See HPI for pertinent positives and negative responses, other pickens all other systems are negative, non-pertinent or non-contributory Allergies Allergies Allergies Coded Allergies Type Severity Reaction Last Updated Verified No Known Drug Allergies 10/30/20 No Physical Exam Physical Exam Constitutional: Pt is oriented to person, place, and time. Pt appears well-developed and well- nourished. HEENT: Head: Normocephalic and atraumatic. TMs clear, no hemotympanum Conjunctivae and EOM are normal. Pupils are equal, round, and reactive to light. Oropharynx is clear and moist. No hematomas or lacerations or abrasions to face or scalp OP clear, no blood, no malocclusion, dentition intact Nares clear, no nasal septal hematoma Midface stable Neck: C-spine midline nontender, no step-offs, c-collar in place Cardiovascular: Normal rate, regular rhythm and normal heart sounds. Pulmonary/Chest: Effort normal and breath sounds normal. No respiratory distress. No wheezes. CTA bilaterally Abdominal: Soft. Bowel sounds are normal. Pt exhibits no distension. There is no tenderness. Musculoskeletal: No bony tenderness to extremities, no deformities, full ROM extremities Chest wall stable Pelvis stable and non-tender No vertebral TTP and spine without stepoffs Neurological: Pt is alert and oriented to person, place, and time. Moving all extremities willfully, able to wiggle all fingers and toes Alert and oriented x 3 Motor and sensory function fully intact Cranial nerves II through XII intact No's bladder or bowel incontinence or saddle anesthesia Skin: Skin is warm and dry. No abrasions, no lacerations Psychiatric: Behavior is appropriate for situation Current Patient Data Vital Signs Vital Signs Date Time Temp Pulse Resp B/P (MAP) Pulse Ox O2 Delivery O2 Flow Rate FiO2 11/04/20 15:55 82 21 132/66 (88) 96 Nasal Cannula 2.0 Vital Signs Date Time Temp Pulse Resp B/P (MAP) Pulse Ox O2 Delivery O2 Flow Rate FiO2 11/04/20 15:55 82 21 132/66 (88) 96 Nasal Cannula 2.0 Lab Results Laboratory Tests Test 11/04/20 16:15 11/04/20 16:42 White Blood Count 7.7 x10^3/uL Red Blood Count 4.23 x10^6/uL Hemoglobin 14.3 g/dL Hematocrit 41.9 % Mean Corpuscular Volume 99 fL Mean Corpuscular Hemoglobin 34 pg Mean Corpuscular Hemoglobin Concent 34 g/dL Red Cell Distribution Width 13.9 % Platelet Count 202 x10^3/uL Neutrophils (%) (Auto) 76 % Lymphocytes (%) (Auto) 14 % Monocytes (%) (Auto) 8 % Eosinophils (%) (Auto) 2 % Basophils (%) (Auto) 1 % Neutrophils # (Auto) 5.8 x10^3uL Lymphocytes # (Auto) 1.0 x10^3/uL Monocytes # (Auto) 0.6 x10^3/uL Eosinophils # (Auto) 0.2 x10^3/uL Basophils # (Auto) 0.1 x10^3/uL Prothrombin Time 16.6 SEC Prothromb Time International Ratio 1.6 Activated Partial Thromboplast Time 32 SEC Sodium Level 139 mmol/L Potassium Level 4.3 mmol/L Chloride Level 101 mmol/L Carbon Dioxide Level 32 mmol/L Anion Gap 6 Blood Urea Nitrogen 12 mg/dL Creatinine 0.7 mg/dL Estimated GFR (Cockcroft-Gault) 109.4 Glucose Level 292 mg/dL Calcium Level 8.9 mg/dL Creatine Kinase 42 U/L EKG EKG EKG ordered and interpreted by myself at 1718 hrs. as sinus rhythm at 86 bpm, prolonged SD interval at 210 otherwise unremarkable intervals, no axis deviation, no acute ischemic findings, no STEMI Radiology/Procedures Radiology/Procedures XR PELVIS 1-2V History: Reason: UNWITNESSED FALL / Spl. Instructions: / History: Technique: AP view the pelvis. Comparison: None. Findings: Normal alignment. No acute fracture. Lower lumbar spondylosis. Vascular calcifications. Impression: 1. No acute osseous abnormality. Electronically signed by: Yury Colvin DO (11/04/2020 5:13 PM) [facility] ///////////////////////////// STUDY: CT head and cervical spine without contrast INDICATION: Unwitnessed fall. Posterior head pain. COMPARISON: None. TECHNIQUE: Axial CT imaging through the head and cervical spine without the use of intravenous contrast. Sagittal and coronal reformats were obtained. One or more of the following individualized dose reduction techniques were utilized for this examination: 1. Automated exposure control 2. Adjustment of the mA and/or kV according to patient size 3. Use of iterative reconstruction technique. FINDINGS: CT head: No definitive acute intracranial hemorrhage. Slight increased density along the falx anteriorly, images 30 and 31 series 2, favored chronic. No localized mass effect, midline shift or hydrocephalus. Prominence of the ventricular system on an ex vacuo basis in the setting of parenchymal volume loss. Cavum septum lucidum. White matter findings most frequently on account of chronic microvascular ischemic change. Intracranial calcific atherosclerosis. No depressed calvarial fracture or large scalp contusion. No acute abnormality at the orbits. No fluid within the paranasal sinuses and mastoid air cells are normally aerated. CT cervical spine: Mild motion degradation affecting assessment of the upper cervical spine. No discrete fracture. Chronic changes involving C1-C2 with mild cyst formation of the odontoid process and along its base. Adjacent mild dystrophic soft tissue mineralization without significant thickening. Multilevel, multifactorial spondylosis. Grade 1 anterolisthesis of C5 on C6 and C7 on T1. Fusion across the vertebral bodies and posterior elements at C6-C7. No evidence for severe narrowing of the central canal. Osseous neural foraminal narrowing mostly mild and moderate in severity such as on the right at C5-C6. No paraspinous hematoma. Carotid calcific atherosclerosis. IMPRESSION: CT head: 1. No acute intracranial abnormality by CT. No depressed calvarial fracture. 2. Chronic/senescent observations described in the body of the report. CT cervical spine: 1. Taking into consideration mild motion degradation, no acute fracture. No traumatic malalignment. 2. Multifactorial degenerative changes without evidence for significant central canal stenosis. Mostly mild and moderate osseous narrowing of the neural foramina at a few levels. Electronically signed by: BRYANT LIZAMA MD (11/04/2020 5:05 PM) [facility] //////////////////////////////////////// XR CHEST 1V History: Reason: UNWITNESSED FALL / Spl. Instructions: / History: Comparison: October 30, 2020 Findings: Hyperinflation. Mild ill-defined bibasilar opacities, likely atelectasis. Left- sided pacemaker, unchanged. Unchanged heart size. No pneumothorax. Prior granulomatous disease within the chest. Impression: 1. No acute cardiopulmonary process. Electronically signed by: Yruy Colvin DO (11/04/2020 5:12 PM) [facility] Heart Score C/O Chest Pain: No HEART Score for Chest Pain: HEART Score for Chest Pain Response (Comments) Value History Slighlty/Non-Suspicious 0 ECG Normal 0 Age > 65 2 Risk Factors >3 Risk Factors or Hx CAD 2 Troponin < Normal Limit 0 Total 4 Risk Factors: Risk Factors: DM, Current or recent (<one month) smoker, HTN, HLP, family history of CAD, obesity. Risk Scores: Risk Factors: DM, Current or recent (<one month) smoker, HTN, HLP, family history of CAD, obesity. Course & Med Decision Making Course & Med Decision Making ABCs unremarkable. I disclosed entirety of ER findings and discussed most likely diagnosis of fall of unknown etiology, likely mechanical. Other diagnoses were discussed with patient such as ACS, pneumonia, sequelae from a fall in a patient on blood thinners and other emergent diagnoses but all deemed less likely causes of patient's presentation. I disclosed entirety of ER work-up with patient he remained asymptomatic throughout ER visit. He likely has underlying dementia that could explain the fact that he does not remember how he fell etc. Regardless, no indication for further diagnostic work-up in ER setting and/or requirement for admission. Plan of care discussed at length with need for close outpatient follow-up to review today's ER visit stressed. Strict return precautions were also discussed at length with good understanding verbalized by patient. Patient voiced understanding and agreement with the plan. Patient knows to come back for repeat evaluation if concerning signs or symptoms present prior to outpatient follow-up. Hemodynamically stable, ambulatory and well-appearing at time of disposition. Dragon Disclaimer Dragon Disclaimer This electronic medical record was generated, in whole or in part, using a voice recognition dictation system. Departure Departure: Impression: Primary Impression: Recurrent falls Additional Impression: Subtherapeutic anticoagulation Disposition: HOME / SELF CARE / HOMELESS Condition: STABLE Referrals: DEREK POLK MD (PCP) Patient Instructions: Fall Prevention and Home Safety Additional Instructions: As discussed prior to ER departure, you were seen and evaluated for fall at home. Your vitals, physical exam and comprehensive ER work-up was nonconcerning for any emergent or surgical issues. You are high risk for adverse events especially given the fact that you are on a blood thinning medication, Coumadin. Your INR was 1.2 which is subtherapeutic and need to be addressed in the outpatient setting. As such, it is important for you to follow-up with your outpatient primary care physician for review of today's visit. If any concerni ng signs or symptoms present prior to outpatient follow-up please do not hesitate to come back for repeat evaluation. It was a pleasure to take care of you and I wish you the best going forward Problem Qualifiers ANN-MARIE DANG DO Nov 04, 2020 16:13
[2020-11-04 16:42] LABS: BASO # 0.1 x10^3/uL (0.0-0.2); BASO % 1 % (0-3); EOS # 0.2 x10^3/uL (0.0-0.7); EOS % 2 % (0-3); HEMATOCRIT 41.9 % (39.0-53.0); HEMOGLOBIN 14.3 g/dL (13.0-17.5); LYMPH % 14 % (24-48); MEAN CORPUSCULAR HEMOGLOBIN 34 pg (25-35); MEAN CORPUSCULAR HGB CONC 34 g/dL (31-37); MEAN CORPUSCULAR VOLUME 99 fL (79-100); MONO # 0.6 x10^3/uL (0.0-1.1); MONO % 8 % (0-9); NEUT # 5.8 x10^3uL (1.8-7.7); NEUT % 76 % (31-73); PLATELET COUNT 202 x10^3/uL (140-400); RED BLOOD COUNT 4.23 x10^6/uL (4.30-5.70); RED CELL DISTRIBUTION WIDTH 13.9 % (11.5-14.5); WHITE BLOOD COUNT 7.7 x10^3/uL (4.0-11.0)
[2020-11-04 16:50] LABS: CALCIUM 8.9 mg/dL (8.5-10.1); CREATININE 0.7 mg/dL (0.7-1.3); GFR 109.4; POTASSIUM 4.3 mmol/L (3.5-5.1)
--- NOTE | 2020-11-04 17:07 | RAD ---
STUDY: CT head and cervical spine without contrast INDICATION: Unwitnessed fall. Posterior head pain. COMPARISON: None. TECHNIQUE: Axial CT imaging through the head and cervical spine without the use of intravenous contra st. Sagittal and coronal reformats were obtained. One or more of the following individualized dose reduction techniques were utilized for this examinat ion: 1. Automated exposure control 2. Adjustment of the mA and/or kV according to patient size 3. Use of iterative reconstruction technique. FINDINGS: CT head: No definitive acute intracranial hemorrhage. Slight increased density along the falx anteriorly, imag es 30 and 31 series 2, favored chronic. No localized mass effect, midline shift or hydrocephalus. Prominence of the ventricular system on an ex vacuo basis in the setting of parenchymal volume loss. Cavum septum lucidum. White matter findings most frequently on account of chronic microvascular ische marisas change. Intracranial calcific atherosclerosis. No depressed calvarial fracture or large scalp contusion. No acute abnormality at the orbits. No flui d within the paranasal sinuses and mastoid air cells are normally aerated. CT cervical spine: Mild motion degradation affecting assessment of the upper cervical spine. No discrete fracture. Chronic changes involving C1-C2 with mild cyst formation of the odontoid proces s and along its base. Adjacent mild dystrophic soft tissue mineralization without significant thicken ing. Multilevel, multifactorial spondylosis. Grade 1 anterolisthesis of C5 on C6 and C7 on T1. Fusion acro ss the vertebral bodies and posterior elements at C6-C7. No evidence for severe narrowing of the cent ral canal. Osseous neural foraminal narrowing mostly mild and moderate in severity such as on the rig ht at C5-C6. No paraspinous hematoma. Carotid calcific atherosclerosis. IMPRESSION: CT head: 1. No acute intracranial abnormality by CT. No depressed calvarial fracture. 2. Chronic/senescent observations described in the body of the report. CT cervical spine: 1. Taking into consideration mild motion degradation, no acute fracture. No traumatic malalignment. 2. Multifactorial degenerative changes without evidence for significant central canal stenosis. Most ly mild and moderate osseous narrowing of the neural foramina at a few levels. Electronically signed by: BRYANT LIZAMA MD (11/04/2020 5:05 PM) [facility]
--- NOTE | 2020-11-04 17:15 | RAD ---
XR CHEST 1V History: Reason: UNWITNESSED FALL / Spl. Instructions: / History: Comparison: October 30, 2020 Findings: Hyperinflation. Mild ill-defined bibasilar opacities, likely atelectasis. Left-sided pacemaker, uncha nged. Unchanged heart size. No pneumothorax. Prior granulomatous disease within the chest. Impression: 1. No acute cardiopulmonary process. Electronically signed by: Yury Colvin DO (11/04/2020 5:12 PM) [facility]
--- NOTE | 2020-11-04 17:16 | RAD ---
XR PELVIS 1-2V History: Reason: UNWITNESSED FALL / Spl. Instructions: / History: Technique: AP view the pelvis. Comparison: None. Findings: Normal alignment. No acute fracture. Lower lumbar spondylosis. Vascular calcifications. Impression: 1. No acute osseous abnormality. Electronically signed by: Yury Colvin DO (11/04/2020 5:13 PM) [facility]
--- NOTE | 2020-11-04 17:22 | EKG ---
[address] [address] Test Date: 2020-11-04 Test Time: 17:09:02 Pat Name: JAMMIE COHEN Department: Room: Gender: M Terminal Make Up Operator: JOSE GUADALUPE : 1940 Requested By: ANN-MARIE DANG Order Number: [id number] Reading MD: Measurements Intervals [place] Rate: 86 P: 47 MN: 210 QRS: 45 QRSD: 88 T: 59 QT: 370 QTc: 446 Interpretive Statements SINUS RHYTHM NORMAL ECG RI6.02 No previous ECG available for comparison
== END 2020-11-04 18:15 | disposition home or self-care (01) ==
LOC: ER 15:55
DX: D68.8 Other specified coagulation defects (principal); R29.6 Repeated falls; E11.9 Type 2 diabetes mellitus without complications; Z90.49 Acquired absence of other specified parts of digestive tract; Z59.0 Homelessness
CPT/HCPCS: 36415; 70450; 71045; 72125; 72170; 80048; 82550; 85025; 85610; 85730; 93005; 99285

== ENCOUNTER 2021-03-25 11:40 | Emergency (ER) | payer MEDICARE ==
[~2021-03-25] VITALS: Ht 182.9 cm; Wt 96.9 kg
[2021-03-25] MEDS ORDERED: HYDROcodone/APAP 7.5/325MG 1 TAB TABLET PO ONE (12:45)
[2021-03-25] MEDS ORDERED: ORPHENADRINE CITRATE 60 MG/2 ML VIAL. IM ONE (12:45)
--- NOTE | 2021-03-25 12:50 | PHYS DOC ---
Past History Past Medical History: Anxiety, Arthritis, Diabetes, UTI Additional Past Medical Histor: prostate issues;enlarged prostate;macular deg- haile;tremors; Past Surgical History: Appendectomy, Cholecystectomy, Pacemaker, Tonsillectomy, Other Additional Past Surgical Histo: cataract-haile;back surgeryx3;vasectomy Alcohol Use: None General Adult EDM: Chief Complaint: BACK PAIN - NO INJURY HPI: HPI: 80-year-old male presents with low back pain. Patient has had a history of low back surgeries in the past. He does not have any new trauma or falls. He has fallen within the last week but did not have significant pain. This morning, he could not get out of bed because he had low back pain. He describes as a deep aching. Tylenol does not help. He denies any numbness or tingling down his legs. No saddle anesthesia. Review of Systems: Review of Systems: Constitutional: Denies fever or chills Eyes: Denies change in visual acuity HENT: Denies nasal congestion or sore throat Respiratory: Denies cough or shortness of breath Cardiovascular: Denies chest pain or edema GI: Denies abdominal pain, nausea, vomiting, bloody stools or diarrhea : Denies dysuria Musculoskeletal: Low back pain Integument: Denies rash Neurologic: Denies headache, focal weakness or sensory changes Endocrine: Denies polyuria or polydipsia Lymphatic: Denies swollen glands Psychiatric: Denies depression or anxiety Current Medications: Current Meds: Current Medications Medications (Trade) Dose Ordered Sig/Jodie Start Time Stop Time Status Last Admin Dose Admin Acetaminophen/ Hydrocodone Bitart (Lortab 7.5/325) 1 tab 1X ONCE 03/25/21 12:45 03/25/21 12:46 DC Orphenadrine Citrate (Norflex) 60 mg 1X ONCE 03/25/21 12:45 03/25/21 12:46 DC Allergies: Allergies: Allergies Coded Allergies Type Severity Reaction Last Updated Verified No Known Drug Allergies 10/30/20 No Physical Exam: PE: Constitutional: Well developed, well nourished, no acute distress, non-toxic appearance. [] HENT: Normocephalic, atraumatic, bilateral external ears normal, oropharynx [address], no oral exudates, nose normal. [] Eyes: PERRLA, EOMI, conjunctiva normal, no discharge. [] Neck: Normal range of motion, no tenderness, supple, no stridor. [] Cardiovascular: Heart rate regular rhythm, no murmur [] Lungs & Thorax: Bilateral breath sounds clear to auscultation [] Abdomen: Bowel sounds normal, soft, no tenderness, no masses, no pulsatile masses. [] Skin: Warm, dry, no erythema, no rash. [] Back: Tenderness over the sacrum worse on the left side [] Extremities: No tenderness, no cyanosis, no clubbing, ROM intact, no edema. [] Neurologic: Alert and oriented X 3, normal motor function, normal sensory function, no focal deficits noted. [] Psychologic: Affect normal, judgement normal, mood normal. [] EKG: EKG: [] Radiology/Procedures: Radiology/Procedures: [] Impressions: Three-view lumbar spine dated 03/25/2021. COMPARISON: None. INDICATION: Back pain. FINDINGS: 3 views of lumbar spine show slight anterolisthesis of L3 on L4. Slight retrolisthesis of L1 on L2. Vertebral body heights are maintained. Mild endplate hypertrophic changes throughout with multilevel disc space narrowing. Moderate to severe arthrosis lower lumbar apophyseal joints. IMPRESSION: 1. No apparent acute abnormality. 2. Moderate to severe multilevel spondylosis. Electronically signed by: Flynn Plummer MD (03/25/2021 2:10 PM) [id number] DICTATED AND SIGNED BY: FLYNN PLUMMER MD DATE: 03/25/21 1409 CC: MER CARLOS DO; DEREK POLK MD ~MTH0 0 Study: CT abdomen/pelvis without intravenous contrast Indication: Abdominal pain. Comparison: None. Technique: Helical CT imaging performed of the abdomen and pelvis without the use of intravenous contrast. Sagittal and coronal reformats were obtained. One or more of the following individualized dose reduction techniques were utilized for this examination: 1. Automated exposure control 2. Adjustment of the mA and/or kV according to patient size 3. Use of iterative reconstruction technique. Findings: Inherently limited evaluation without intravenous contrast. Pacer wires. Calcific coronary artery disease. Small hiatal hernia. Reticular densities at the subpleural right lower lobe favored atelectasis. No focal hepatic parenchymal abnormality. Absent gallbladder. Nondilated biliary tree. Unremarkable pancreas, spleen and adrenal glands. Nonspecific perinephric fat stranding on the right and left. Incompletely evaluated but simple density cystic focus at the right kidney inferior pole. No hydronephrosis. Mildly distended urinary bladder. Normal wall thickness. No significant prostatomegaly. Mild rectal distention with well-formed stool. Moderate volume well-formed colonic stool burden more proximally. Colonic diverticulosis without diverticulitis. Nonvisualized appendix. No inflammation at its expected location. No pathologic dilatation of small bowel. Limited assessment of the stomach on account of underdistention. Extensive calcific atherosclerosis. Nonaneurysmal abdominal aorta. No lymphadenopathy. No free fluid or pneumoperitoneum. No complex body wall hernia. Osteopenia. Degenerative changes. Lower lumbar dorsal decompression. Grade 1 anterolisthesis of L3 on L4 in the setting of advanced facet arthrosis. Canal narrowing at a few levels but not fully characterized. Impression: 1. No acute abnormality identified throughout the abdomen or pelvis. 2. Moderate degree of constipation to include rectal distention with well- formed stool. 3. Small hiatal hernia. Calcific coronary artery disease. Electronically signed by: BRYANT LIZAMA MD (03/25/2021 3:13 PM) [id number] DICTATED AND SIGNED BY: BRYANT LIZAMA MD DATE: 03/25/21 1500 CC: MER CARLOS DO; DEREK POLK MD ~MTH0 0 Heart Score: C/O Chest Pain: N/A Risk Factors: Risk Factors: DM, Current or recent (<one month) smoker, HTN, HLP, family history of CAD, obesity. Risk Scores: Score 0 - 3: 2.5% MACE over next 6 weeks - Discharge Home Score 4 - 6: 20.3% MACE over next 6 weeks - Admit for Clinical Observation Score 7 - 10: 72.7% MACE over next 6 weeks - Early Invasive Strategies Course & Med Decision Making: Course & Med Decision Making Pertinent Labs and Imaging studies reviewed. (See chart for details) Patient's x-rays negative for acute findings. He does have spondylosis. See official read for more details. Given the patient [place] 7.5/325 and Norflex IM. He had relief but when he moves he has shooting pain again. I will add 60 mg of prednisone. No unintended CT of the abdomen and pelvis as the patient is still having discomfort more than I would expect. There are no significant acute findings. See official read for more details. He is moderately constipated. I will discharge him with magnesium citrate and [place]. He will follow up with his primary physician this week. He is stable for discharge at this time. [] Fara Disclaimer: Fara Disclaimer: This electronic medical record was generated, in whole or in part, using a voice recognition dictation system. Departure Departure: Impression: Primary Impression: Sacroiliac pain Disposition: HOME / SELF CARE / HOMELESS Condition: STABLE Referrals: DEREK POLK MD (PCP) Patient Instructions: Low Back Strain with Rehab-[facility], Sacroiliac Joint Dysfunction Scripts Hydrocodone/Acetaminophen (Hydrocodone-Acetamin 5-325 mg) 1 Each Tablet 1-2 EACH PO Q6HRS PRN for PAIN, #10 TAB Prov: MER CARLOS DO 03/25/21 MER CARLOS DO Mar 25, 2021 12:49
--- NOTE | 2021-03-25 14:12 | RAD ---
Three-view lumbar spine dated 03/25/2021. COMPARISON: None. INDICATION: Back pain. FINDINGS: 3 views of lumbar spine show slight anterolisthesis of L3 on L4. Slight retrolisthesis of L1 on L2. V ertebral body heights are maintained. Mild endplate hypertrophic changes throughout with multilevel d isc space narrowing. Moderate to severe arthrosis lower lumbar apophyseal joints. IMPRESSION: 1. No apparent acute abnormality. 2. Moderate to severe multilevel spondylosis. Electronically signed by: Flynn Plummer MD (03/25/2021 2:10 PM) [id number]
[2021-03-25] MEDS ORDERED: predniSONE 20 MG TABLET PO ONE (14:30)
--- NOTE | 2021-03-25 15:16 | RAD ---
Study: CT abdomen/pelvis without intravenous contrast Indication: Abdominal pain. Comparison: None. Technique: Helical CT imaging performed of the abdomen and pelvis without the use of intravenous cont rast. Sagittal and coronal reformats were obtained. One or more of the following individualized dose reduction techniques were utilized for this examinat ion: 1. Automated exposure control 2. Adjustment of the mA and/or kV according to patient size 3. Use of iterative reconstruction technique. Findings: Inherently limited evaluation without intravenous contrast. Pacer wires. Calcific coronary artery disease. Small hiatal hernia. Reticular densities at the subple ural right lower lobe favored atelectasis. No focal hepatic parenchymal abnormality. Absent gallbladder. Nondilated biliary tree. Unremarkable p ancreas, spleen and adrenal glands. Nonspecific perinephric fat stranding on the right and left. Inco mpletely evaluated but simple density cystic focus at the right kidney inferior pole. No hydronephros is. Mildly distended urinary bladder. Normal wall thickness. No significant prostatomegaly. Mild rectal distention with well-formed stool. Moderate volume well-formed colonic stool burden more proximally. Colonic diverticulosis without diverticulitis. Nonvisualized appendix. No inflammation at its expected location. No pathologic dilatation of small bowel. Limited assessment of the stomach on account of underdistention. Extensive calcific atherosclerosis. Nonaneurysmal abdominal aorta. No lymphadenopathy. No free fluid or pneumoperitoneum. No complex body wall hernia. Osteopenia. Degenerative changes. Lower lumbar dorsal decompression. Grade 1 anterolisthesis of L3 on L4 in the setting of advanced facet arthrosis. Canal narrowing at a few levels but not fully charact erized. Impression: 1. No acute abnormality identified throughout the abdomen or pelvis. 2. Moderate degree of constipation to include rectal distention with well-formed stool. 3. Small hiatal hernia. Calcific coronary artery disease. Electronically signed by: BRYANT LIZAMA MD (03/25/2021 3:13 PM) [id number]
[2021-03-25 15:47] VITALS: BP 131/95
[2021-03-25] MEDS ORDERED: MAGNESIUM CITRATE 296 ML SOLUTION. PO ONE (16:00)
[2021-03-25] MEDS ORDERED: HYDR-2759 PO (16:00)
== END 2021-03-25 16:19 | disposition home or self-care (01) ==
LOC: ER 11:40
DX: M53.3 Sacrococcygeal disorders, not elsewhere classified (principal); M54.59 Other low back pain; M19.90 Unspecified osteoarthritis, unspecified site; E11.9 Type 2 diabetes mellitus without complications; Z87.440 Personal history of urinary (tract) infections; Z90.89 Acquired absence of other organs; Z90.49 Acquired absence of other specified parts of digestive tract; Z95.0 Presence of cardiac pacemaker
CPT/HCPCS: 72100; 74176; 96372; 99284; J2360; J7512